=== PATIENT | male | born 1940 | race Caucasian/White ===

== ENCOUNTER → 2025-01-11 13:56 | Outpatient (REF) | payer MEDICARE, OTHER, SELFPAY ==
[2025-01-11 15:25] LABS: Albumin 3.9 g/dl (3.5-5.0); Blood Urea Nitrogen 29 mg/dl (9-20); Calcium 9.9 mg/dl (8.4-10.2); Carbon Dioxide 30 mmol/L (22-30); Chloride 105 mmol/L (98-107); Glucose 152 mg/dl (70-99); Phosphorus 3.4 mg/dl (2.5-4.5); Potassium 4.6 mmol/L (3.5-5.1); Sodium 141 mmol/L (135-145); eGFR > 60.00
== END ==
LOC: REG 13:56
PROVIDERS: ATTENDING PHYSICIAN Student in an Organized Health Care Education/Training Program; FAMILY PHYSICIAN Internal Medicine
DX: I10 Essential (primary) hypertension (principal)
CPT/HCPCS: 36415; 80069

== ENCOUNTER → 2025-01-14 13:38 | Outpatient (REF) | payer MEDICARE, OTHER, SELFPAY | LOC: RAD 13:38 | PROVIDERS: ATTENDING PHYSICIAN Student in an Organized Health Care Education/Training Program; FAMILY PHYSICIAN Internal Medicine | DX: I71.00 Dissection of unspecified site of aorta (principal); I65.29 Occlusion and stenosis of unspecified carotid artery; I25.10 Atherosclerotic heart disease of native coronary artery without angina pectoris | CPT/HCPCS: 71275; 93880; Q9967 ==

== ENCOUNTER 2025-08-31 01:01 | Inpatient (IN) | payer MEDICARE, SELFPAY ==
[2025-08-30 18:13] VITALS: BP 175/84
[2025-08-30 18:42] LABS: APTT 29.5 Sec (23.4-35.0)
[2025-08-30 18:43] LABS: ALT (SGPT) 15 U/L (0-50); AST (SGOT) 23 U/L (17-59); Albumin 4.6 g/dl (3.5-5.0); Alkaline Phosphatase 64 U/L (38-126); Blood Urea Nitrogen 26 mg/dl (9-20); Calcium 10.1 mg/dl (8.4-10.2); Carbon Dioxide 29 mmol/L (22-30); Chloride 104 mmol/L (98-107); Glucose 134 mg/dl (70-99); Potassium 4.4 mmol/L (3.5-5.1); Sodium 140 mmol/L (135-145); Total Protein 7.7 g/dl (6.3-8.2); eGFR > 60.00
[2025-08-30 18:46] LABS: Hematocrit 40.9 % (39.0-52.0); Hemoglobin 12.4 g/dL (13.0-18.0); Mean Corp Hgb Conc. 30.3 g/dL (33.0-37.0); Mean Corpuscular Volume 99.3 fL (80.0-94.0); Platelet Count 146 10^3/uL (130-400); Red Cell Dist. Width 14.7 % (11.5-14.5)
[2025-08-30 19:09] LABS: Nucleated Red Blood Cells % 0 % (-)
[2025-08-30 19:40] VITALS: BMI 24.0
[2025-08-30] MEDS: ZOFRAN 4 MG IV ×2 (19:46→23:35)
[2025-08-30] MEDS: DILAUDID 0.5 MG IV ×3 (19:46→23:35)
[2025-08-30] MEDS: NSS 1000 IV (19:46)
[2025-08-30 20:00] VITALS: BP 184/71
[2025-08-30 21:00] VITALS: BP 177/66
[2025-08-30 22:34] LABS: Lipase 55 U/L (23-300)
[2025-08-30 22:35] VITALS: BP 148/80
--- NOTE | 2025-08-30 22:37 | ED.GENMED ---
History of Present Illness
<Pat Charlton NP - Last Filed: 08/31/25 15:39>
General
Chief Complaint: Vomiting Blood
Source: patient
Time Seen by Provider: 08/30/25 19:22
Nursing documentation reviewed up to this point in time: agreed with
History of Present Illness
History of Present Illness:
Patient to emergency department with complaint of nausea vomiting and abdominal pain. Symptoms started today. He reports multiple episodes of vomiting and noting blood-tinged mucus in vomit. He denies any blood clots. Brought to the emergency
department by family for evaluation. He denies any prior history of same. Family denies fever or chills.
Past History
<Pat Charlton NP - Last Filed: 08/31/25 15:39>
Past History
ED Past Medical History: None, Cancer (CLL), CVA, HTN and Other
ED Past Surgical History: None
Social History
Tobacco: Non-smoker
Living: with family
Review of Systems
<Pat Charlton NP - Last Filed: 08/31/25 15:39>
Review of Systems
Allergies reviewed?: Yes
All Other Systems: ROS reviewed and negative except as documented in HPI and ROS
Constitutional: Reports no symptoms
EENT: Reports no symptoms
Respiratory: Reports no symptoms
Cardiac: Reports no symptoms
ABD/GI: Reports abdominal pain, nausea and vomiting
Musculoskeletal: Reports no symptoms
Skin: Reports no symptoms
Neurological: Reports weakness
Psychiatric: Reports no symptoms
Phy Exam
<Pat Charlton NP - Last Filed: 08/31/25 15:39>
General Physical Exam
General Presentation: moderate distress
General age: appears stated age
General Skin: warm and dry
General Habitus: normal
General Mental: alert
Cardiovascular Exam
Cardiovascular Exam: regular rate/rhythm
Pulmonary Exam
Pulmonary Exam: lungs clear and no respiratory distress
Gastrointestinal Exam
Gastrointestinal Exam: soft, no organomegaly, no pulsatile mass, non distended and guarding
Palpation: generalized: Moderate tenderness
Musculoskeletal Exam
Musculoskeletal Exam: neuro vasc intact
Skin Exam
Skin Exam: normal color, warm/dry and no rash
Psychiatric Exam
Psychiatric Exam: normal mood/affect
Course
<Pat Charlton [employer]LL[employer]IMBER - Last Filed: 08/31/25 15:39>
Orders/Labs/Results
Orders:
Orders
08/30/25 18:24
Type And Crossmatch [Type+Screen] Urgent
Complete Blood Count/With Diff Urgent
Comprehensive Metabolic Panel Urgent
Lipase Urgent
Comment: ADD ON
PTT Urgent
08/30/25 19:32
0.9% Sodium Chloride 1000 ml [Nss] 1,000 ml IV BOLUS
HYDROmorphone [Dilaudid] 0.5 mg IV NOW STA
Ondansetron Injectable [Zofran] 4 mg IV NOW STA
08/30/25 19:37
CT Abd/pelvis W Iv Cont Urgent
Comment:
Reason For Exam: severe abdominal pain
08/30/25 19:50
Lactic Acid Urgent
08/30/25 21:14
HYDROmorphone [Dilaudid] 0.5 mg .ROUTE .STK-MED ONE
08/30/25 21:16
HYDROmorphone [Dilaudid] 0.5 mg IV NOW STA
08/30/25 22:02
Add On- LAB Urgent
Tests Added?: lipase
08/30/25 22:35
Urinalysis Reflex To Culture Urgent
Date Specimen was Collected: 08/30/25
Time Specimen was Collected: 22:32
Urine Microscopic Reflex Cult Urgent
08/30/25 23:30
HYDROmorphone [Dilaudid] 0.5 mg IV NOW STA
Ondansetron Injectable [Zofran] 4 mg IV NOW STA
08/31/25 00:37
Admit/Transfer Patient As Directed
Co-Sign Provider:
Level of Care: Inpatient admission
Assign to:: Medical/Surgical
Physician / Group: Suzan
Diagnosis: Small bowel obstruction
Reason for Hospitalization: small bowel obstruction, incarcerated inguinal hernia
Expected length of stay greater than two midnights?: Yes
ELOS- Estimated Length of Stay in days: 2
I certify the patient meets the requirements for IP care: Yes
ECG [Electrocardiogram (*1)] Routine
Reason for Study: PreOp
PRN Pain Medication Management As Directed
May give lesser potent ordered pain med per pt: Yes
preference::
Protocol:: Medication orders for pain may be administered in a
manner that supports deferring to patient preference
when the pt is:
- Requesting an ordered lesser potent pain medication.
Least to most potent pain medications are defined
as: acetaminophen < NSAID < tramadol < opioids
(morphine, oxycodone, hydromorphone).
- Requesting a lesser dose of the same medication IF
ORDERED.
- Requesting a less intrusive route of administration
if both routes are prescribed by the provider (PO <
IV).
08/31/25 00:38
Code Status As Directed
Resuscitation Status: Do not resuscitate
Reached after discussion with pt or family/Healthcare POA: Yes
DNR Bracelet Application ONCE
08/31/25 02:12
Acetaminophen [Tylenol] 650 mg PO Q4HPRN PRN
Ketorolac [Toradol] 10 mg IV Q6HPRN PRN
Lactated Ringers [Lr] 1,000 ml IV 75 mls/hr
08/31/25 02:12
SURGICAL CONSULT Routine
Consulting Provider: Terell Villegas
Was physician already notified: Yes
Reason for consult: SBO on the basis of bowel in right inguinal hernia
Activity As Directed
Activity Level: With Assistance
Pneumatic Compression Sleeves As Directed
Type: Knee high
Vital Signs As Directed
Frequency: Per unit guidelines
Pulse Ox/spot Check [RESP] Routine
Quantity: 1
DX Deep Vein Thrombosis Video Routine
08/31/25 02:30
HYDROmorphone [Dilaudid] 0.5 mg IV Q3HPRN PRN
08/31/25 Breakfast
NPO
Allow oral meds: Yes
Allow clear liquids: Sips of Clears
Ondansetron Injectable [Zofran] 4 mg IV Q6HPRN PRN
08/31/25 06:31
Basic Metabolic Panel IN AM
Complete Blood Count/No Diff IN AM
Magnesium IN AM
PTT IN AM
Prothrombin Time IN AM
Abnormal Lab Results
08/30/25 08/30/25
18:24 22:35
WBC 85.8 H* 10^3/uL
(4.8-10.8)
RBC 4.12 L 10^6/uL
(4.70-6.10)
Hgb 12.4 L g/dL
(13.0-18.0)
MCV 99.3 H fL
(80.0-94.0)
MCHC 30.3 L g/dL
(33.0-37.0)
RDW 14.7 H %
(11.5-14.5)
MPV 10.6 H fL
(7.4-10.4)
Abs Immat Gran (auto) 0.2 H 10^3/uL
(0-0.05)
Absolute Lymphs (auto) 78.5 H 10^3/uL
(1.2-3.4)
Absolute Monos (auto) 0.8 H 10^3/uL
(0.1-0.6)
Neutrophils % 7.4 L %
(42.2-75.2)
Lymphocytes % 91.4 H %
(20.5-51.1)
Monocytes % 0.9 L %
(1.7-9.3)
BUN 26 H mg/dl
(9-20)
Glucose 134 H mg/dl
(70-99)
Total Bilirubin 1.5 H mg/dl
(0.2-1.3)
Urine Ketones 3+ A
(Negative)
Ur Occult Blood Reflex 4+ A
(Negative)
Urine RBC 30-40 A /HPF
(0-2)
Urine Bacteria (Reflex) Few A
(Negative)
Urine Albumin (Reflex) 2+ A
(Neg - Trace)
08/30/25 18:24
08/30/25 18:24
Vital Signs
Initial and Last Documented VS:
Initial Vital Signs
Temp Pulse Resp BP Pulse Ox
97.9 F 76 20 175/84 98
08/30/25 18:13 08/30/25 18:13 08/30/25 18:13 08/30/25 18:13 08/30/25 18:13
Last Documented Vital Signs
Temp Pulse Resp BP Pulse Ox
97.9 F 57 16 132/61 96
08/31/25 07:30 08/31/25 07:30 08/31/25 07:30 08/31/25 07:30 08/31/25 11:45
<Sonia Diaz, DO - Last Filed: 08/30/25 23:50>
Orders/Labs/Results
Orders:
Orders
08/30/25 18:24
Type And Crossmatch [Type+Screen] Urgent
Complete Blood Count/With Diff Urgent
Comprehensive Metabolic Panel Urgent
Lipase Urgent
Comment: ADD ON
PTT Urgent
08/30/25 19:32
0.9% Sodium Chloride 1000 ml [Nss] 1,000 ml IV BOLUS
HYDROmorphone [Dilaudid] 0.5 mg IV NOW STA
Ondansetron Injectable [Zofran] 4 mg IV NOW STA
08/30/25 19:37
CT Abd/pelvis W Iv Cont Urgent
Comment:
Reason For Exam: severe abdominal pain
08/30/25 19:50
Lactic Acid Urgent
08/30/25 21:14
HYDROmorphone [Dilaudid] 0.5 mg .ROUTE .STK-MED ONE
08/30/25 21:16
HYDROmorphone [Dilaudid] 0.5 mg IV NOW STA
08/30/25 22:02
Add On- LAB Urgent
Tests Added?: lipase
08/30/25 22:35
Urinalysis Reflex To Culture Urgent
Date Specimen was Collected: 08/30/25
Time Specimen was Collected: 22:32
Urine Microscopic Reflex Cult Urgent
08/30/25 23:30
HYDROmorphone [Dilaudid] 0.5 mg IV NOW STA
Ondansetron Injectable [Zofran] 4 mg IV NOW STA
08/31/25 00:37
Admit/Transfer Patient As Directed
Co-Sign Provider:
Level of Care: Inpatient admission
Assign to:: Medical/Surgical
Physician / Group: Suzan
Diagnosis: Small bowel obstruction
Reason for Hospitalization: small bowel obstruction, incarcerated inguinal hernia
Expected length of stay greater than two midnights?: Yes
ELOS- Estimated Length of Stay in days: 2
I certify the patient meets the requirements for IP care: Yes
ECG [Electrocardiogram (*1)] Routine
Reason for Study: PreOp
PRN Pain Medication Management As Directed
May give lesser potent ordered pain med per pt: Yes
preference::
Protocol:: Medication orders for pain may be administered in a
manner that supports deferring to patient preference
when the pt is:
- Requesting an ordered lesser potent pain medication.
Least to most potent pain medications are defined
as: acetaminophen < NSAID < tramadol < opioids
(morphine, oxycodone, hydromorphone).
- Requesting a lesser dose of the same medication IF
ORDERED.
- Requesting a less intrusive route of administration
if both routes are prescribed by the provider (PO <
IV).
08/31/25 00:38
Code Status As Directed
Resuscitation Status: Do not resuscitate
Reached after discussion with pt or family/Healthcare POA: Yes
DNR Bracelet Application ONCE
08/31/25 02:12
Acetaminophen [Tylenol] 650 mg PO Q4HPRN PRN
Ketorolac [Toradol] 10 mg IV Q6HPRN PRN
Lactated Ringers [Lr] 1,000 ml IV 75 mls/hr
08/31/25 02:12
SURGICAL CONSULT Routine
Consulting Provider: Terell Villegas
Was physician already notified: Yes
Reason for consult: SBO on the basis of bowel in right inguinal hernia
Activity As Directed
Activity Level: With Assistance
Pneumatic Compression Sleeves As Directed
Type: Knee high
Vital Signs As Directed
Frequency: Per unit guidelines
Pulse Ox/spot Check [RESP] Routine
Quantity: 1
DX Deep Vein Thrombosis Video Routine
08/31/25 02:30
HYDROmorphone [Dilaudid] 0.5 mg IV Q3HPRN PRN
08/31/25 Breakfast
NPO
Allow oral meds: Yes
Allow clear liquids: Sips of Clears
Ondansetron Injectable [Zofran] 4 mg IV Q6HPRN PRN
08/31/25 06:31
Basic Metabolic Panel IN AM
Complete Blood Count/No Diff IN AM
Magnesium IN AM
PTT IN AM
Prothrombin Time IN AM
Abnormal Lab Results
08/30/25 08/30/25
18:24 22:35
WBC 85.8 H* 10^3/uL
(4.8-10.8)
RBC 4.12 L 10^6/uL
(4.70-6.10)
Hgb 12.4 L g/dL
(13.0-18.0)
MCV 99.3 H fL
(80.0-94.0)
MCHC 30.3 L g/dL
(33.0-37.0)
RDW 14.7 H %
(11.5-14.5)
MPV 10.6 H fL
(7.4-10.4)
Abs Immat Gran (auto) 0.2 H 10^3/uL
(0-0.05)
Absolute Lymphs (auto) 78.5 H 10^3/uL
(1.2-3.4)
Absolute Monos (auto) 0.8 H 10^3/uL
(0.1-0.6)
Neutrophils % 7.4 L %
(42.2-75.2)
Lymphocytes % 91.4 H %
(20.5-51.1)
Monocytes % 0.9 L %
(1.7-9.3)
BUN 26 H mg/dl
(9-20)
Glucose 134 H mg/dl
(70-99)
Total Bilirubin 1.5 H mg/dl
(0.2-1.3)
Urine Ketones 3+ A
(Negative)
Ur Occult Blood Reflex 4+ A
(Negative)
Urine RBC 30-40 A /HPF
(0-2)
Urine Bacteria (Reflex) Few A
(Negative)
Urine Albumin (Reflex) 2+ A
(Neg - Trace)
08/30/25 18:24
08/30/25 18:24
Vital Signs
Initial and Last Documented VS:
Initial Vital Signs
Temp Pulse Resp BP Pulse Ox
97.9 F 76 20 175/84 98
08/30/25 18:13 08/30/25 18:13 08/30/25 18:13 08/30/25 18:13 08/30/25 18:13
Last Documented Vital Signs
Temp Pulse Resp BP Pulse Ox
97.9 F 57 16 132/61 96
08/31/25 07:30 08/31/25 07:30 08/31/25 07:30 08/31/25 07:30 08/31/25 11:45
<Pat Charlton NP - Last Filed: 08/31/25 15:39>
*Pulse Oximetry
SaO2: 95
Oxygen Mode of Delivery: Room air
Patient hypoxic: no
*Critical Care Note
Total Time (30-74mins, 75-104mins- exclusive of procedures): Not Applicable
<Pat Charlton NP - Last Filed: 08/31/25 15:39>
Update Note
Update Note:
Patient to the emergency department with complaint of abdominal pain nausea vomiting. Symptoms started this a.m. Denies any fever or chills. He reports seeing blood-tinged sputum in the mucus this afternoon but denies any mary blood or clots.
He was given IV fluids and pain medications on arrival to ED. labs reviewed. WBC 85.8. He has a history of CLL, currently not being treated. Lactic is 1.5. He remains afebrile. CMP stable. Abdominal CT obtained. Small bowel obstruction with a
transition point located in the bowel containing a right inguinal hernia. Case discussed with Dr. Diaz who also examined this patient. Dr. Villegas consulted. Hernia reduced bedside by Dr. Andrews. Patient will be admitted, will potentially have
hernia repair this week.
ED Attending Note
<Pat Charlton CELL[employer] TOWER CLIMBER - Last Filed: 08/31/25 15:39>
-
Portions of this chart may have been created with voice recognition software.� Occasional wrong word or��sound alike� substitutions may have occurred due to the inherent limitations of voice recognition software.
<Sonia Diaz DO - Last Filed: 08/30/25 23:50>
ED Attending Note
Patient seen and examined by attending physician: Yes
I performed the substantive portion of visit, reviewed & personally made and approve the management plan that is documented in note by myself or GLEN.: Yes
I performed a history and physical exam of patient and discussed management with resident, I reviewed resident's note and agree with documented findings and plan of care.: Yes
ED Attending Note:
85-year-old male with prior history of CLL, not currently on treatment, not presenting to the emergency department for abdominal pain and vomiting. Patient had several episode of vomiting with blood-tinged mucus. Notes prior surgical history of
right inguinal hernia repair several years ago. No report of any fever, chest pain, difficulty breathing. Patient is not on any blood thinners. Vital signs on arrival significant for hypertension.
On exam, patient is more comfortable after pain medication administered. On my examination, generalized tenderness to abdomen, with focal right inguinal hernia firmness on palpation. Labs obtained prior to my assessment, markedly elevated WBC,
however suspected to be known from secondary underlying CLL. Normal lactic acid. CT obtained, consistent with small bowel obstruction with right inguinal hernia transition point. On reassessment, attempt to reduce, unsuccessful. Lower suspicion
for ischemic bowel. Will consult with surgery with plan for admission
23:40 -was able to reduce at bedside. Plan for admission for surgical consultation in the morning
Discharge Plan
Departure
Patient Disposition: Admit
Date of Disposition: 08/31/25
Time of Disposition: 00:03
Presentation/result/management discussed w/ accepting MD/DO: Hospitalist
Patient with high blood pressure during this ER visit?: No
Condition: Fair
Discharge Problem:
Partial small bowel obstruction, Hernia, inguinal, right
Interventions
Interventions:
*Risk Screen - Suicide Last Done: 08/31/25 02:08
*General Assessment Last Done: 08/30/25 18:13
*Neglect/Abuse Screening Last Done: 08/30/25 19:40
*ED- Fall Risk Assessment Last Done: 08/30/25 19:40
*ED COVID-19 Vaccine History Last Done: 08/31/25 02:08
*ED Influenza Vaccine History Last Done: 08/30/25 19:40
*Nursing Disposition Last Done: 08/31/25 02:05
LT-Vganbn-Wsnzbicwfg Assessment Last Done: 08/30/25 20:00
ED- Cardiac Assessment Last Done: 08/30/25 20:00
ED- Pulmonary Assessment Last Done: 08/30/25 20:00
Discharge Date and Time
Discharge Date/Time: 08/31/25 02:05
[2025-08-30 22:46] LABS: Urine Character Clear (Clear)
[2025-08-30 22:58] LABS: Urine Red Blood Cell 30-40 /HPF (0-2); Urine Squamous Cell 0-2 /LPF (Few)
[2025-08-30 23:00] VITALS: BP 159/54
[2025-08-31] VITALS: BP 140/58
--- NOTE | 2025-08-31 00:09 | HPS.HSE ---
Family Physician
-
Family Physician: Ayaz Espitia
Chief Complaint
-
Bloody emesis
History of Present Illness
This is a 85-year-old male who has a past medical history significant for CLL, history of CAD, carotid stenosis status post bilateral carotid stenting, ascending aortic dissection status post dural repair, for transient episode of atrial
fibrillation with postoperative environment, history of throat cancer status post surgery chemoradiation in 2006, history of hernia repair about 10 years ago who presents to the emergency department with of abdominal pain.
Patient reports acute onset of right lower quadrant abdominal pain on Saturday. Initially he attributed to his hernia. Reports that the pain/sharp intermittent. He denies any radiation down the leg. He denies any urinary symptoms. Denies having
any new flank pain, he does report a chronic left-sided back pain.
He tried to have a bowel movement this morning he then had severe pain and significant bowel and vomiting. Due to worsening pain he decided come to the emergency department.
While in the emergency department he was noted to have generalized abdominal tenderness, and a right inguinal hernia. This hernia was reduced at the bedside.
He was afebrile, blood pressure was 148/80 with a pulse of 81 and was satting 98% on room air. CBC shows a white count of 85, hemoglobin and platelets were 12.4 and 146 respectively. His electrolytes BUN/creatinine were normal. LFTs were normal.
UA was unremarkable.
CT of the abdomen pelvis showing small bowel obstruction with transition point located in the bowel containing right inguinal hernia.
Medical History
Past Medical History
Past Medical History: Reports Arrhythmia (Postoperative atrial fibrillation), CAD (CAD), Cancer (CLL, throat cancer status post surgical resection, chemoradiation in 2006, malignant melanoma 1989,), HTN and Other (Carotid stenosis status post
bilateral carotid stents)
Additional Past Medical History:
Ascending aortic dissection status postrepair and hemiarch replacement
Past Surgical History: Reports Tonsilectomy and Other (Repair of Type I ascending aortic dissection and quyen arch replacement( JSA))
Social History
Tobacco: Non-smoker
Alcohol: None
Drug: None
Family History
Family History: Not pertinent
Allergies / Home Medications
Allergies reflects when Allergies were last updated in [employer].
Home Medications with original date entered in [employer]
Allergy/Medication List:
Allergies
Allergy/AdvReac Type Severity Reaction Status Date / Time
No Known Allergies Allergy Verified 08/30/25 18:13
Home Medications
aspirin 81 mg tablet,delayed release 81 mg PO QPM 10/29/14
multivitamin (Multi-Day tablet) 1 ea PO DAILY 03/09/16
ascorbic acid (vitamin C) 500 mg tablet (Vitamin C) 500 mg PO BID 12/30/18
cholecalciferol (vitamin D3) 25 mcg (1,000 unit) tablet 1,000 units PO DAILY 12/30/18
cyanocobalamin (vitamin B-12) 1,000 mcg tablet 1,000 mcg PO DAILY 12/30/18
Transfer Factor Vitamins 1 dose PO DAILY 12/05/19
lisinopril 20 mg tablet 20 mg PO DAILY 12/05/19
Review of Systems
-
Constitutional: Reports No Symptoms
EENT: Reports No Symptoms
Respiratory: Reports No Symptoms
Cardiac: Reports No Symptoms
Abdomen/GI: Reports Abdominal Pain and Vomiting
: Reports No Symptoms
Musculoskeletal: Reports No Symptoms
Skin: Reports No Symptoms
Neurological: Reports No Symptoms
Endocrine: Reports No Symptoms
Hematologic/Lymphatic: Reports No Symptoms
Psych: Reports No Symptoms
Physical Exam
Vital Signs
Vital Signs
Temp Pulse Resp BP Pulse Ox
97.8 F 81 18 148/80 95
08/30/25 19:51 08/30/25 22:55 08/30/25 22:55 08/30/25 22:35 08/30/25 22:38
Physical Exam
General: Well Developed, Well Nourished and No Apparent Distress
HEENT: NormoCephalic, Moist mucous membranes and Atraumatic
Respiratory: Clear
Cardiac: S1/S2 and Regular Rhythm; No Murmur or Rub
GI: Soft, Non Distended, Normal Bowel Sounds and Tender; No Organomegaly
Rectal: Deferred by Provider
Musculoskeletal: No Clubbing, No Cyanosis and No Edema
Skin: No Rash
Neuro: AO x 3 and Nonfocal/grossly intact
Hematologic/Lymphatic: No Lymphadenopathy
Psych: Calm
Laboratory Results
-
08/30/25 18:24
08/30/25 18:24
Laboratory Results
APTT 29.5 Sec (23.4-35.0) 08/30/25 18:24
Lactic Acid 1.5 mmol/L (0.7-2.0) 08/30/25 19:50
Total Bilirubin 1.5 mg/dl (0.2-1.3) H 08/30/25 18:24
AST 23 U/L (17-59) 08/30/25 18:24
ALT 15 U/L (0-50) 08/30/25 18:24
Alkaline Phosphatase 64 U/L (38-126) 08/30/25 18:24
Lipase 55 U/L (23-300) 08/30/25 18:24
Data Reviewed
-
CT Scan: Report Reviewed by me
Lab Data: Labs Reviewed by me
Old Records: Reviewed
Impression/Plan
-
IMPRESSION:
85-year-old with history of chronic lymphocytic leukemia, CAD, ascending aortic dissection status postrepair in 2019, carotid stenosis status post bilateral carotid stents, history of throat cancer status post radiation and chemo and surgical
resection presents presents to the emergency department with abdominal pain and was found to have a right lower quadrant incarcerated hernia with small bowel obstruction. He vomited prior to coming to the emergency department has not vomited since
being in the ED.
PLAN:
Small bowel obstruction -SBO on the basis of incarcerated hernia. No necrosis at this time. Patient is hemodynamically stable afebrile and in no acute distress.
� Admit to MedSurg
� Check ECG
� N.p.o. for now
� No indication for NG tube at this time
� Pain control, antiemetics and IV fluids
� Surgery consulted and aware will plan 4 OR in a.m.
� Patient is only on Eliquis which he reports is for his bilateral carotid stents and possibly for his transient A-fib, last dose of Eliquis was Saturday
� Holding Eliquis, checking PT/INR in a.m.
� Patient's benefit from procedure outweighs the cardiac risks and she will proceed as necessary.
Ascending Aortic dissection - S/P repair and has routine f/u. Last imaging in january shows stable repair. Patient has been asymptomatic
- monitor BP
- not currently on antihypertensives or statin
AFIB - paroxysmal afib occuring after surgery
- on eliquis, hold
- ecg
CLL - WBC 86, normal Hgb and plt. D/W oncology. No acute interventions and no perioperative adjustments
DVT prophylaxis�SCDs for now
CODE STATUS�full code
[2025-08-31 01:00] VITALS: BP 125/50
[2025-08-31] MEDS: LR 1000 IV (02:36)
[2025-08-31 02:40] VITALS: BP 135/70
[2025-08-31] MEDS: DILAUDID 0.5 MG IV (02:46)
[2025-08-31 02:57] VITALS: BMI 22.5
--- NOTE | 2025-08-31 03:02 | PTCARENOTE ---
[facility] ED @ 0208. Pt ambulated to bed assist x1 w/o issue. Pt AAOx3, vss. Admission assessment completed. Pt c/o 10 left lower back pain, see MAR for med administration. CHG wipes completed d/t possible OR add-on today with
Dr. Villegas. IVF initiated per order. Pt w/ hx of throat ca s/p removal of tonsil tumor and lymph nodes. Pt has difficulty with choking & swallowing at baseline. Pt NPO but allowed sips of clears. Pt tolerated sips of clears w/o issue. Bedalarm in
place d/t generalized weakness. Educated pt on calling for assistance prior to ambulating. Pt oriented to room, call luna within reach, bed locked and in lowest position. Plan of care reviewed with pt. All questions answered. Care ongoing.
[2025-08-31 07:28] LABS: Hematocrit 35.9 % (39.0-52.0); Hemoglobin 11.2 g/dL (13.0-18.0); Mean Corp Hgb Conc. 31.2 g/dL (33.0-37.0); Mean Corpuscular Volume 97.0 fL (80.0-94.0); Platelet Count 127 10^3/uL (130-400); Red Cell Dist. Width 14.8 % (11.5-14.5)
[2025-08-31 07:29] LABS: INR 1.17; PT 15.3 Sec (11.4-14.6)
[2025-08-31 07:30] VITALS: BP 132/61
[2025-08-31 07:30] LABS: APTT 29.3 Sec (23.4-35.0)
[2025-08-31 08:26] LABS: Blood Urea Nitrogen 23 mg/dl (9-20); Calcium 9.3 mg/dl (8.4-10.2); Carbon Dioxide 30 mmol/L (22-30); Chloride 107 mmol/L (98-107); Estimated Creatinine Clearance 62 ml/min; Glucose 88 mg/dl (70-99); Magnesium 2.2 mg/dl (1.6-2.3); Potassium 4.5 mmol/L (3.5-5.1); Sodium 140 mmol/L (135-145); eGFR > 60.00
--- NOTE | 2025-08-31 09:45 | W.PN.UPDATE ---
Update Note
Progress Note Update
Pt seen and evaluated at bedside. Feeling better, ab/groin pain resolved. Right groin hernia not palpable (supine), nt in this area, denies n/v. S/P neck dissection he eats a limited soft diet. Leukemoid reaction noted, hx CLL. Last dose eliquis
yesterday am. PLan for diet today, Heme/onc eval, tentatively for OR tomorrow for robotic RIHR. Hold brittnee. [email or web address].
Full consult note to follow
--- NOTE | 2025-08-31 10:07 | W.PN.UPDATE ---
Update Note
Progress Note Update
Seen and admitted by .
Admitted for small bowel obstruction due to incarcerated hernia.
Evaluated with general surgery today. She had reduced hernia and asymptomatic. Plan for OR tomorrow noted.
Patient placed back on diet and n.p.o. after midnight. Oncology consulted because of history of CLL and significant leukocytosis.
EKG with SR and occ PVC no acute ST/T changes .
[2025-08-31 11:57] VITALS: BMI 22.5
--- NOTE | 2025-08-31 13:00 | CON.ONC ---
Consultation
-
Date Consultation Requested: 08/31/25
Date Consultation Performed: 08/31/25
Requesting Provider: Xander Ceja MD
Performing Provider: Shantel Taveras MD
Reason for Consultation: CLL
Impression
Impression
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 Followed by Dr. Omalley at [facility]
Incarcerated right inguinal hernia, now reduced. For surgery tomorrow
Plan
Plan
Okay to proceed with surgery as planned - his CLL should not pose any significantly increased risks for bleeding or surgical complications
Lymphocytosis is stable. No significant anemia or thrombocytopenia, no treatment indicated for CLL
Will sign off, please call with any questions
Patient History
History of Present Illness
patient is seen for evaluation re: CLL
He presented to the ER yesterday with GI symptoms secondary to an incarcerated right inguinal hernia, which was reduced with symptom improvement. He's scheduled for surgical repair tomorrow.
He has a h/o CLL, follows with Dr. Omalley at [facility], with q4mo CBCs and visits. His WBC has been stable in the 60-70,000 range for a few years. He's never had any indication for treatment. He denies fevers, chills, weight loss, adenopathy,
infections.
CBC today noted for WBC around 69K, hgb 11.2, platelets 127.
Past-Medical/Surgical History
Past Medical History
Past Medical History: Reports Arrhythmia (Postoperative atrial fibrillation), CAD (CAD), Cancer (CLL, throat cancer status post surgical resection, chemoradiation in 2006, malignant melanoma 1989,), HTN and Other (Carotid stenosis status post
bilateral carotid stents)
Additional Past Medical History:
Ascending aortic dissection status postrepair and hemiarch replacement
Past Surgical History: Reports Tonsillectomy and Other (Repair of Type I ascending aortic dissection and quyen arch replacement( JSA))
Social History
Tobacco: Non-smoker
Alcohol: None
Drug: None
Family History
Family History: Not pertinent
Patient Medication
�Medication �Instructions �Recorded �Confirmed �Last Taken �Type
aspirin 81 mg tablet,delayed 81 mg PO QPM 10/29/14 08/31/25 12/04/19 History
release
ascorbic acid (vitamin C) 500 mg 500 mg PO BID 12/30/18 08/31/25 08/30/25 History
tablet (Vitamin C)
cholecalciferol (vitamin D3) 25 1,000 units PO DAILY 12/30/18 08/31/25 08/30/25 History
mcg (1,000 unit) tablet
cyanocobalamin (vitamin B-12) 1,000 mcg PO DAILY 12/30/18 08/31/25 08/30/25 History
1,000 mcg tablet
therapeutic multivitamin 1 tab PO DAILY 08/31/25 08/31/25 Unknown History
Active Medications
Generic Name Dose Route Start Last Admin
Trade Name Freq PRN Reason Stop Dose Admin
Acetaminophen 650 mg 08/31/25 02:12
Acetaminophen 325 Mg Tablet PO 09/28/25 02:11
Q4HPRN PRN
mild pain/LOPEZ/temp> 100.4F
Hydromorphone HCl 0.5 mg 08/31/25 02:30 08/31/25 02:46
Hydromorphone 0.5 Mg/0.5 Ml Syringe IV 09/14/25 02:29 0.5 mg
Q3HPRN PRN Administration
severe pain
Lactated Ringer's 1,000 mls @ 75 mls/hr 08/31/25 02:12 08/31/25 02:36
Lr IV 08/31/25 15:31 1,000 mls
[id number] MARGOTH Administration
Ketorolac Tromethamine 10 mg 08/31/25 02:12
Ketorolac 15 Mg/Ml Injection IV 09/05/25 02:11
Q6HPRN PRN
moderate pain
Ondansetron HCl 4 mg 08/31/25 06:00
Ondansetron 4 Mg/2 Ml Vial IV 09/28/25 05:59
Q6HPRN PRN
nausea and vomiting
Sodium Chloride 0 flush 08/31/25 03:00
Sodium Chloride 0.9% (Flush) Syringe IV 09/28/25 02:59
PER PROTOCOL MARGOTH
Review of Systems
-
All Other Systems: Not reviewed unless documented
Physical Exam
-
General: Well Developed, Well Nourished, No Apparent Distress, Comfortable and Conversant
HEENT: Moist Mucous Membranes
Cardiology: Normal Sinus Rhythm
Pulmonary: Clear
Musculoskeletal: No Clubbing, No Cyanosis and No Edema
Neurology: Non Focal, No Lateralizing Symptoms and No Word Finding Difficulty
Skin: Warm and Dry
Hematologic / Lymphatic: No Lymphadenopathy
Psych: Calm and Intact Judgement/Insight
Labs
Lab Results
WBC 69.6 10^3/uL (4.8-10.8) H* 08/31/25 06:31
RBC 3.70 10^6/uL (4.70-6.10) L 08/31/25 06:31
Hgb 11.2 g/dL (13.0-18.0) L 08/31/25 06:31
Hct 35.9 % (39.0-52.0) L 08/31/25 06:31
MCV 97.0 fL (80.0-94.0) H 08/31/25 06:31
MCH 30.3 pg (27.0-31.0) 08/31/25 06:31
MCHC 31.2 g/dL (33.0-37.0) L 08/31/25 06:31
RDW 14.8 % (11.5-14.5) H 08/31/25 06:31
Plt Count 127 10^3/uL (130-400) L 08/31/25 06:31
MPV 11.0 fL (7.4-10.4) H 08/31/25 06:31
Abs Immat Gran (auto) 0.2 10^3/uL (0-0.05) H 08/30/25 18:24
Absolute Neuts (auto) 6.3 10^3/uL (1.4-6.5) 08/30/25 18:24
Absolute Lymphs (auto) 78.5 10^3/uL (1.2-3.4) H 08/30/25 18:24
Absolute Monos (auto) 0.8 10^3/uL (0.1-0.6) H 08/30/25 18:24
Absolute Eos (auto) 0.0 10^3/uL (0-0.7) 08/30/25 18:24
Absolute Basos (auto) 0.1 10^3/uL (0-0.2) 08/30/25 18:24
Immature Gran % 0.2 % (0-0.5) 08/30/25 18:24
Neutrophils % 7.4 % (42.2-75.2) L 08/30/25 18:24
Lymphocytes % 91.4 % (20.5-51.1) H 08/30/25 18:24
Monocytes % 0.9 % (1.7-9.3) L 08/30/25 18:24
Eosinophils % 0.0 % (0-6) 08/30/25 18:24
Basophils % 0.1 % (0-2) 08/30/25 18:24
Creatinine 0.9 mg/dL (0.7-1.3) 08/31/25 06:31
Vital Signs
Vital Signs
Temp Pulse Resp BP Pulse Ox
97.9 F 57 16 132/61 96
08/31/25 07:30 08/31/25 07:30 08/31/25 07:30 08/31/25 07:30 08/31/25 11:45
--- NOTE | 2025-08-31 14:02 | CON.GS ---
Consultation
-
Date/Time Consultation Performed: 08/31/25
Requesting Provider: Jhony
Performing Provider: Marcial
Reason for Consultation: RIH
Medical History
-
Chief Complaint: Right groin pain
History of Present Illness:
85M with CLL presents with right groin pain that began 2 days ago. Described as sharp and intermittent, without radiation. He denies training for BM or heavy lifting prior to onset. No changes to stool or urine. Denies f/c/n/v.
Past Medical History
Past Medical History: Other (Arrhythmia (Postoperative atrial fibrillation), CAD (CAD), Cancer (CLL, throat cancer, chemoradiation in 2006, malignant melanoma 1989,), HTN and Other (Carotid stenosis status post bilateral carotid stents), Ascending
aortic dissection, dysphagia)
Past Surgical History: Hernia Repair and Other (Tonsilectomy and Other (Repair of Type I ascending aortic dissection and quyen arch replacement( JSA), neck dissection)
Social History
Tobacco: Non-Smoker
Alcohol: None
Drug: None
Family History
Family History: Reviewed & Noncontributory
Allergies / Home Medications
Allergy/AdvReac Type Severity Reaction Status Date / Time
No Known Allergies Allergy Verified 08/30/25 18:13
�Medication �Instructions �Recorded �Confirmed �Type
aspirin 81 mg tablet,delayed 81 mg PO QPM 10/29/14 08/31/25 History
release
ascorbic acid (vitamin C) 500 mg 500 mg PO BID 12/30/18 08/31/25 History
tablet (Vitamin C)
cholecalciferol (vitamin D3) 25 1,000 units PO DAILY 12/30/18 08/31/25 History
mcg (1,000 unit) tablet
cyanocobalamin (vitamin B-12) 1,000 mcg PO DAILY 12/30/18 08/31/25 History
1,000 mcg tablet
therapeutic multivitamin 1 tab PO DAILY 08/31/25 08/31/25 History
Review of Systems
-
A 10 point review of systems was completed, and was negative except as per HPI.
Physical Exam
Vital Signs
Temp Pulse Resp BP Pulse Ox
97.9 F 57 16 132/61 96
08/31/25 07:30 08/31/25 07:30 08/31/25 07:30 08/31/25 07:30 08/31/25 11:45
08/30/25 08/31/25 09/01/25
06:59 06:59 06:59
Actual Weight 73.119 kg
Body Mass Index (BMI) 22.5
Lab Results
08/31/25 06:31
08/31/25 06:31
WBC 69.6 10^3/uL (4.8-10.8) H* 08/31/25 06:31
Hgb 11.2 g/dL (13.0-18.0) L 08/31/25 06:31
Hct 35.9 % (39.0-52.0) L 08/31/25 06:31
Plt Count 127 10^3/uL (130-400) L 08/31/25 06:31
Abs Immat Gran (auto) 0.2 10^3/uL (0-0.05) H 08/30/25 18:24
Neutrophils % 7.4 % (42.2-75.2) L 08/30/25 18:24
Physical Exam
General: Well Developed, Well Nourished and No Apparent Distress
GI: Soft, Non Tender and Non Distended
Genito-urinary: Inguinal Hernia (no palpable RIH, no tenderness to right groin)
Skin: Warm and Dry
Neuro: AO x 3
Psych: Calm
Data Reviewed
-
CT Scan: Image Personally Visualized and interpreted, Report Reviewed by me and Discussed with Patient
Labs: Labs Reviewed by me and Discussed with Patient
Assessment / Plan
-
85M with right inguinal hernia reduced in ED a/w SBO in setting of CLL not on cancer tx
AFVSS, asymptomatic this am
Leukocytosis noted, reportedly stable, 2/2 CLL
Last dose eliquis yesterday am
Plan:
Tentatively for OR tomorrow am for robotic RIHR
Consult Heme/Onc to assess CLL
OK for diet today (he eats mostly pureed food s/p neck dissection)
NPO@MN
Hold eliquis
All other care as per primary team
[2025-08-31 15:15] VITALS: BP 103/45
--- NOTE | 2025-08-31 16:12 | CM ---
I.A: Completed By OMAR Brown
Patient lives with his in a 2 ST with 14 STI, BR/BA on second floor and powder room on the 1st.
DME: None. No VN/PT
Patient has been to Outpatient before.
PCP: Dr. Ayaz Hirsch
Pharmacy: [facility] on
Patient has transport when ready.
[2025-08-31 23:29] VITALS: BP 137/71
[2025-09-01] VITALS (11 sets, daily range): BP systolic 110–154; BP diastolic 49–74
[2025-09-01 08:21] LABS: Hematocrit 36.9 % (39.0-52.0); Hemoglobin 11.4 g/dL (13.0-18.0); Mean Corp Hgb Conc. 30.9 g/dL (33.0-37.0); Mean Corpuscular Volume 96.3 fL (80.0-94.0); Platelet Count 130 10^3/uL (130-400); Red Cell Dist. Width 15.0 % (11.5-14.5)
--- NOTE | 2025-09-01 09:05 | W.PN.UPDATE ---
Update Note
Progress Note Update
Mild thrombocytopenia improved. AFVSS. Seen by Heme/Onc and cleared for surgery. OCTOR for rTAPP RIHR. NPO pending OR. [employer] network operations lead.
--- NOTE | 2025-09-01 13:05 | W.PN.HOSP.TC ---
Today's Communication/Plan
-
OR today
Assessment / Plan
Assessment / Plan
IMPRESSION:
85-year-old with history of chronic lymphocytic leukemia, CAD, ascending aortic dissection status postrepair in 2019, carotid stenosis status post bilateral carotid stents, history of throat cancer status post radiation and chemo and surgical
resection presents presents to the emergency department with abdominal pain and was found to have a right lower quadrant incarcerated hernia with small bowel obstruction. He vomited prior to coming to the emergency department has not vomited since
being in the ED.
PLAN:
Small bowel obstruction -SBO on the basis of incarcerated hernia. No necrosis at this time. Patient is hemodynamically stable afebrile and in no acute distress.
� OR today.
� Patient is only on Eliquis which he reports is for his bilateral carotid stents and possibly for his transient A-fib, last dose of Eliquis was Saturday
� Holding Eliquis
Ascending Aortic dissection - S/P repair and has routine f/u. Last imaging in january shows stable repair. Patient has been asymptomatic
- monitor BP
- not currently on antihypertensives or statin
AFIB - paroxysmal afib occuring after surgery
- on eliquis, hold
CLL - WBC 86, normal Hgb and plt. Cleared by oncology for surgery. No acute interventions and no perioperative adjustments
DVT prophylaxis�SCDs for now
CODE STATUS�full code
Anticipated Discharge: 24 - 48 hours
Subjective/Interval History
-
Date of Service: September 01, 2025
Resolved abdominal pain without recurrence. Await OR for hernia repair.
Denies any nausea vomiting.
No chest pain or shortness of breath.
Objective Data
-
Labs:
Laboratory Results
09/01/25
07:58
WBC 67.9 H*
Hgb 11.4 L
Hct 36.9 L
Plt Count 130
Vital Signs:
Vital Signs
Temp Pulse Resp BP Pulse Ox
97.8 F 61 16 133/63 93
09/01/25 07:15 09/01/25 07:15 09/01/25 07:15 09/01/25 07:15 09/01/25 07:15
I&O
08/31/25 09/01/25 09/02/25
06:59 06:59 06:59
Intake Total 1631 / 1631 480 / 480
Balance 1631 / 1631 480 / 480
Physical Exam
-
General: No Apparent Distress
HEENT: Moist Mucous Membranes
Respiratory: Clear to Auscultation and Non Labored Respirations; Negative Accessory Resp Muscle Use
Cardiac: Regular Rhythm and S1/S2; Negative Tachycardic
GI: Soft and Nontender
Neuro: AO x 3
Psych: Calm
Data Reviewed
-
Labs: Labs Reviewed by me
--- NOTE | 2025-09-01 15:44 | CM ---
CM following re: discharge planning
Reviewed pt's chart, met with pt.
Per CM note, Patient lives with his in a 2 [address] with 14 steps and pt is independent in all areas [employer].
D/C plan: home no needs anticipated.
CM will follow with discharge plan updates as hospitalization progresses
--- NOTE | 2025-09-01 16:23 | W.IMMPOSTOP ---
Addendum entered and electronically signed by Xander Ceja MD 09/01/25 16:33:
Attempted to call , busy signal. Daughter reached by phone and updated. Tentatively for DC home tomorrow am. OK to restart A/C 09/03 PM.
Original Note:
Surgical Immed Post Op Note
-
Primary Surgeon: Marcial
Assisting: Lisa TROO
Pre-op Diagnosis: Recurrent right inguinal hernia
Post-op Diagnosis: Same
Procedure Performed: Robot assisted laparoscopic repair of recurrent right inguinal hernia and diagnostic laparoscopy
Anesthesia Type: GETA
Specimen / Cultures: None
Estimated Blood Loss: 5cc
Complications: None immediate
Operative Findings: Old plug mesh dissected down with flap, direct recurrence, unable to hilda pseudosac due to scarring from prior mesh; XL MID 3D Max; small bowel inspected from mid jejunum to distal ileum - all appeared healthy
--- NOTE | 2025-09-01 16:27 | OR.RPT ---
Operative Report
Operative Report
Primary Surgeon: Marcial
Assisting: Lisa TORO
Pre-op Diagnosis: Recurrent right inguinal hernia
Post-op Diagnosis: Same
Procedure Performed: Robot assisted laparoscopic repair of recurrent right inguinal hernia and diagnostic laparoscopy
Anesthesia Type: GETA
Specimen / Cultures: None
Estimated Blood Loss: 5cc
Complications: None immediate
Operative Findings: Old plug mesh dissected down with flap, direct recurrence, unable to hilda pseudosac due to scarring from prior mesh; XL MID 3D Max; small bowel inspected from mid jejunum to distal ileum - all appeared healthy
Date of Surgery: 09/01/25
Indications: This 85M developed a recurrent incarcerated right inguinal hernia that was reduced in the Emergency Dept. Robot assisted laparoscopic repair was elected.
Description of procedure:� The patient was taken to the operating room and positioned into supine position. The patient�s abdomen was prepped and draped in standard sterile fashion. A time-out was completed verifying correct patient, procedure,
site, positioning, and implants and special equipment prior to beginning this procedure.
A stab incision was made in the left upper quadrant, a Veress needle was inserted and proper position was confirmed by aspiration and saline drop test. Following this, pneumoperitoneum was created with insufflation of carbon dioxide to 12 mmHg. Then
a 8mm robotic trocar was inserted above and to the left of the umbilicus. A laparoscope was inserted and the area of initial trocar entry and Veress needle placement were both inspected and no injuries were found. Two 8mm trocars were then placed
lateral to the rectus sheath under direct visualization.
Both inguinal regions were inspected and the median umbilical ligament, medial umbilical ligament, and lateral umbilical fold were identified. Attention was turned to the right groin. The peritoneum was incised transversely above the defect and a
flap was developed in the caudad direction. Shimon�s ligament was identified ultimately dissected to its junction with the iliac vein and the space of Retzius was developed bluntly. In the intervening space a large mesh plug was identified and
carefully transected, the seeper portion was well incorporated into the peritoneum and cam down with the flap. The dissection was continued inferiorly to the iliopubic tract, with care taken to avoid injury to the femoral branch of the genitofemoral
nerve and the lateral femoral cutaneous nerve. The cord structures were parietalized. Abutting the cord structures was another old mesh plug, this was carefully dissected away from the vessels and brought down with the flap.
The direct space was inspected and a hernia defect was identified and reduced. The femoral space was inspected and no defect was identified. The indirect space was inspected no defect was identified. The canal was inspected and no cord lipoma was
identified.
Extra large right MID 3D max mesh was passed through a trocar. The mesh was placed into the preperitoneal space and moved into position to lay flat and completely cover the direct, indirect, and femoral spaces with overlap at the midline. The mesh
was secured into place using 2-0 vicryl suture to Shimon�s ligament medially and laterally. Care was taken to avoid the inferolateral triangles containing the iliac vessels and genital nerves. The peritoneal flap was closed over the mesh and secured
with 2-0 monocryl stratafix suture in similar positions of safety. A small flap rent at the lateral old mesh plug was repaired with 2-0 vicryl suture. A 14g angiocath was used to decompress the preperitoneal space revealing good seal and all mesh
in good position without folding or curling.
After ensuring adequate hemostasis, the trocars were removed and the pneumoperitoneum allowed to escape. The trocar incisions were closed at the skin level using 4-0 monocryl and topical skin adhesive. Marcaine 0.5% with epinephrine was infiltrated
into the skin around the port incisions. All counts were correct and the patient tolerated the procedure well and was taken to the postanesthesia care unit in stable condition.
The assistance of Lisa TORO was required due to the complexity of the procedure. During the procedure she assisted with retraction, resection, and closure of the wound.
--- NOTE | 2025-09-01 18:04 | PTCARENOTE ---
Received patient from PACU at 1800. Patient is AAOx3, a bit drowsy. patient has no c/o pain. Abdomen with 5 lap sites sealed with glue. Ice bag to abdomen. Patient tolerating sips of water, ordering dinner now. Family at bedside. Call luna in reach.
[2025-09-01] MEDS: DILAUDID 0.5 MG IV (18:30)
[2025-09-02 03:07] VITALS: BP 132/68
[2025-09-02 07:40] VITALS: BP 118/55
--- NOTE | 2025-09-02 11:50 | W.DCSUMMARY ---
Discharge Summary
Discharge Data
Date of Admission: 08/31/25
Date of Discharge: 09/02/25
-
Pending Results: No
Hospital Course
Primary diagnosis:
Small bowel obstruction secondary to right inguinal hernia
Secondary diagnosis:
Chronic lymphocytic leukemia
Coronary artery disease
Carotid stenosis status post bilateral stenting
Aortic dissection s/p repair
Atrial fibrillation on Eliquis
History of hernia repair 10 years ago
Hospital course:
Patient presented with right lower quadrant pain for 2 days. He did have a bowel movement which gave him more pain and started to have vomiting. He had generalized tenderness of the right inguinal hernia area. It was reducible at bedside. CT of
the abdomen pelvis showed small bowel obstruction with transition point located in the bowel containing right inguinal hernia.
He has CLL with elevated white count on admission. Normally around 30s but it was 85.8 probably leukemoid in the setting of SBO. Was seen by hematology presurgery. Discharge CBC showed white count of 67.9. Hemoglobin 11.4. Platelets were 130.
Was seen by general surgery and had uneventful Robot assisted laparoscopic repair of recurrent right inguinal hernia and diagnostic laparoscopy 09/01.
Today patient without any complaints. Tolerating diet postoperatively. Pain is under control. Denies any chest pain or shortness of breath. No palpitation.
S1 plus S2 are regular. Chest was clear. Abdomen benign. Trocar insertion sites are clean.
Medically stable for discharge home.
On questioning further his medications at home he says he only takes Eliquis 5 mg twice a day and Tylenol. Denies taking aspirin.
General surgery recommends restarting Eliquis starting tomorrow evening. This was discussed with the patient.
Consultants on board:
General Surgery-Xander Perez
Discharge Plan
-
Patient Disposition: Home (Routine Discharge)
Discharge Diagnosis/Procedures: Robotic recurrent right inguinal hernia repair
Diet: No restrictions
Activity: No strenuous activity
Driving Restrictions: No driving for 24 hours
Bathing Restrictions: OK to Shower
Wound Care: Allow skin glue to flake off on its own
Instructions: Groin hernia repair (DC)
Referrals:
Ayaz Espitia MD [Family Provider, Internal Medicine] - in less than 1 week
Xander Ceja MD [Active, Surgical] - in two to four weeks
Additional Discharge Medication Instructions: Use tylenol as needed for pain. Follow directions on bottle. Use ice packs over groin for soreness. I expect there will be some swelling in the groin, this is normal and will resolve on its own.
You can start taking your Eliquis starting tomorrow evening
Prescriptions:
New
acetaminophen 325 mg Tablet
650 mg PO Q4HPRN PRN (Reason: mild pain/LOPEZ/temp> 100.4F) Qty: 1 0RF
Eliquis 5 mg tablet
5 mg PO BID Qty: 1 0RF
Rx Instructions:
As before, start taking tomorrow evening
polyethylene glycol 3350 [Gavilax] 17 gram powder in packet
17 g PO DAILY PRN (Reason: Constipation) Qty: 14 0RF
Continued
cyanocobalamin (vitamin B-12) 1,000 MCG tablet
1,000 mcg PO DAILY
ascorbic acid (vitamin C) [Vitamin C] 500 MG tablet
500 mg PO BID
cholecalciferol (vitamin D3) 1,000 UNITS tablet
1,000 units PO DAILY
therapeutic multivitamin Tablet
1 tab PO DAILY
Discontinued
aspirin 81 MG tablet,delayed release (DR/EC)
81 mg PO QPM
Discharge Orders:
Discharge Patient (As Directed); Ordered 09/02/25
Ordered By: Ney Booker
Discharge Date and Time
Print Language: NEPALI
[2025-09-02 12:00] VITALS: BP 122/54
--- NOTE | 2025-09-02 12:09 | CM ---
Discharge home today, no CM needs
Patient confirmed that he has no issues w/ discharge today. Confirmed transportation home
IMM verbally reviewed
Plan: Home, no needs
== END 2025-09-02 13:52 | disposition home or self-care (01) | DRG 351 ==
LOC: 2 SOUTH 01:01
PROVIDERS: Emergency Medicine; Nurse Practitioner; ADMITTING PHYSICIAN Internal Medicine; ATTENDING PHYSICIAN Internal Medicine; EMERGENCY PHYSICIAN Student in an Organized Health Care Education/Training Program; FAMILY PHYSICIAN Internal Medicine; OTHER PHYSICIAN Internal Medicine Hematology & Oncology; OTHER PHYSICIAN Surgery
PROC: 8E0W4CZ Robotic Assisted Procedure of Trunk Region, Percutaneous Endoscopic Approach (ICD-10-PCS; 2025-09-01)
PROC: 0YU54JZ Supplement Right Inguinal Region with Synthetic Substitute, Percutaneous Endoscopic Approach (ICD-10-PCS; 2025-09-01)
DX: K56.690 Other partial intestinal obstruction (principal); C91.10 Chronic lymphocytic leukemia of B-cell type not having achieved remission; K40.31 Unilateral inguinal hernia, with obstruction, without gangrene, recurrent; K56.600 Partial intestinal obstruction, unspecified as to cause; Z66 Do not resuscitate; I48.0 Paroxysmal atrial fibrillation; I25.10 Atherosclerotic heart disease of native coronary artery without angina pectoris; I65.29 Occlusion and stenosis of unspecified carotid artery; Z79.01 Long term (current) use of anticoagulants; Z79.82 Long term (current) use of aspirin
CPT/HCPCS: 74177; 80048; 80053; 81003; 81015; 83605; 83690; 83735; 85025; 85027; 85610; 85730; 86850; 86900; 86901; 93005; 99285; C1781; Q9967